=== PATIENT | male | born 1980 ===

== ENCOUNTER 2016-10-21 22:15 | Emergency (ER) | payer SELFPAY ==
[2016-10-21 22:50] VITALS: BP 164/101
[2016-10-21 23:50] LABS: Basophils % (Auto) 0.6 % (0.0-1.8); Eosinophils % (Auto) 3.1 % (0.0-4.3); Hemoglobin 10.9 gm/dl (11.8-15.2); Mean Corpuscular HGB Conc 35 % (32-34); Mean Corpuscular Hemoglobin 29 pg (28-32); Mean Corpuscular Volume 82 fl (84-94); Platelet Count 229 K/mm3 (140-440); Red Cell Distribution Width 13.2 % (13.2-15.2); White Blood Count 6.6 K/mm3 (4.5-11.0)
[2016-10-22 00:03] LABS: INR 1.01 (0.87-1.13)
[2016-10-22 00:20] LABS: Albumin 3.1 g/dL (3.9-5); Albumin/Globulin Ratio 0.8 %; BUN/Creatinine Ratio 25.71; Bilirubin,Total 0.6 mg/dL (0.1-1.2); Calcium 9.4 mg/dL (8.4-10.2); Chloride 96.4 mmol/L (98-107); Potassium 4.7 mmol/L (3.6-5.0); Total Protein 7.2 g/dL (6.3-8.2)
[2016-10-22 07:30] LABS: Bilirubin,Urine NEG (Negative); Blood,Urine NEG (Negative); Ketones,Urine NEG (Negative); Leukocyte Esterase,Urine NEG (Negative); Mucus,Urine FEW /HPF; Nitrite,Urine NEG (Negative); Urobilinogen,Urine < 2.0 mg/dL (<2.0)
== END 2016-10-21 23:58 | disposition left against medical advice (07) ==
LOC: ED 22:15
DX: S99.922A Unspecified injury of left foot, initial encounter (principal); X58.XXXA Exposure to other specified factors, initial encounter; Y93.89 Activity, other specified; Y99.9 Unspecified external cause status; Y92.89 Other specified places as the place of occurrence of the external cause; Z53.21 Procedure and treatment not carried out due to patient leaving prior to being seen by health care provider
CPT/HCPCS: 36415; 80053; 81001; 82140; 82805; 85025; 85610; 87040; 87086